=== PATIENT | male | born 1950 | race Caucasian/White ===

== ENCOUNTER 2018-07-13 16:40 | Emergency (ER) | payer MEDICARE, MEDICAID ==
[~2018-07-13] VITALS: Ht 172.7 cm; Wt 75.5 kg
[~2018-07-13 16:40] MED LIST: AZEL137S4 INH; CEFA500C8 PO; CHOL50004 PO; FLUT16SP20 INH; NITR0.4T51 SL; PER10325T PO; PRAV20TA4 PO; STADNS NS
[2018-07-13 16:52] VITALS: BP 109/67
[2018-07-13 18:33] LABS: INR 1.1 INR; PROTHROMBIN TIME 10.8 SECONDS (9.0-12.0)
[2018-07-13 18:38] LABS: BASOPHILS % (AUTO) 0.3 % (0-1); EOSINOPHILS # (AUTO) 0.1 X10'3 (0-0.9); HEMATOCRIT 37.5 % (42.0-52.0); HEMOGLOBIN 12.4 g/dl (14.0-17.9); LYMPHOCYTES % (AUTO) 68.6 % (21-51); MEAN CORPUSCULAR HEMOGLOBIN 31.2 PG (27.0-31.0); MEAN CORPUSCULAR HGB CONC 33.1 g/dL (33.0-36.5); MEAN CORPUSCULAR VOLUME 94.2 FL (78-98); MEAN PLATELET VOLUME 7.6 FL (7.4-10.4); MONOCYTES # (AUTO) 0.4 X10'3 (0-0.9); MONOCYTES % (AUTO) 3.3 % (2-12); NEUTROPHILS # (AUTO) 3.1 X10'3 (1.8-7.7); NEUTROPHILS % (AUTO) 26.8 % (42-75); PLATELET COUNT 163 X10'3 (140-440); RED BLOOD COUNT 3.98 X10'6 (4.70-6.10); RED CELL DISTRIBUTION WIDTH 16.3 % (11.5-14.5); WHITE BLOOD COUNT 11.6 X10'3 (4.5-11.0)
[2018-07-13 18:46] LABS: ALANINE AMINOTRANSFERASE 24 U/L (12-78); ALBUMIN 3.9 G/DL (3.4-5.0); ALBUMIN/GLOBULIN RATIO 1.3 (1.1-1.5); ALKALINE PHOSPHATASE 100 IU/L (46-116); ANION GAP 8 (8-16); ASPARTATE AMINO TRANSFERASE 14 U/L (10-37); BILIRUBIN,TOTAL 0.5 MG/DL (0.1-1.0); BLOOD UREA NITROGEN 22 MG/DL (7-18); BUN/CREATININE RATIO 20.6 (5.4-32.0); CALCIUM 9.4 MG/DL (8.5-10.1); CHLORIDE 104 MMOL/L (99-107); CREATININE 1.07 MG/DL (0.60-1.10); GLUCOSE 102 MG/DL (70-104); LIPASE 312 U/L (73-393); POTASSIUM 4.4 MMOL/L (3.5-5.1); SODIUM 141 MMOL/L (135-145); TOTAL CARBON DIOXIDE 28.9 MMOL/L (24-32); TOTAL PROTEIN 6.9 G/DL (6.4-8.2); eGFR 68 ML/MIN
== END 2018-07-13 20:10 | disposition home or self-care (01) ==
LOC: ER 16:40
DX: K46.9 Unspecified abdominal hernia without obstruction or gangrene (principal); G43.909 Migraine, unspecified, not intractable, without status migrainosus; I25.10 Atherosclerotic heart disease of native coronary artery without angina pectoris; I25.2 Old myocardial infarction; G89.29 Other chronic pain; Z98.890 Other specified postprocedural states; Z91.011 Allergy to milk products; Z79.899 Other long term (current) drug therapy
CPT/HCPCS: 36415; 80053; 83690; 85025; 85610; 99283

== ENCOUNTER 2019-07-26 10:52 | Day surgery (SDC) | payer MEDICARE, MEDICAID ==
[2019-07-26] VITALS (11 sets, daily range): BP systolic 88–103; BP diastolic 47–61
[~2019-07-26] VITALS: Ht 170.2 cm; Wt 65.9 kg
[~2019-07-26 10:52] MED LIST changes: -AZEL137S4 INH; -CEFA500C8 PO; -CHOL50004 PO; -FLUT16SP20 INH; -PER10325T PO; -PRAV20TA4 PO
[2019-07-26] MEDS ORDERED: fentaNYL/PF 50MCG/1 ML 2ML syringe IV ONE (11:35)
[2019-07-26] MEDS ORDERED: MIDAZolam 5mg/ml 2ml vial IV ONE (11:35)
[2019-07-26] MEDS ORDERED: STADNS NS (11:40)
[2019-07-26] MEDS ORDERED: NITR0.4T48 SL (11:40)
[2019-07-26] MEDS ORDERED: MIDAZolam 1mg/ml 10ml vial IV ONE (12:00)
[2019-07-26] MEDS ORDERED: normal saline 1000ml 1,000 ML IV SCH (12:05)
[2019-07-26] MEDS ORDERED: LIDOcaine 1% 30ml preserv. free vial IJ STA (12:06)
== END 2019-07-26 15:15 | disposition home or self-care (01) ==
LOC: SSTAY O 10:52
PROVIDERS: ATTEND Radiology Diagnostic Radiology
DX: R59.0 Localized enlarged lymph nodes (principal); C83.15 Mantle cell lymphoma, lymph nodes of inguinal region and lower limb; D64.9 Anemia, unspecified; E60 Dietary zinc deficiency; Z91.012 Allergy to eggs; Z91.011 Allergy to milk products; Z79.899 Other long term (current) drug therapy
CPT/HCPCS: 38505; 76942; 88184; 88185; 88341; 88342; J2250; J3010; J7030; 88173; 88305

== ENCOUNTER 2019-08-13 11:19 | Day surgery (SDC) | payer MEDICARE, MEDICAID ==
[2019-08-13] VITALS (7 sets, daily range): BP systolic 102–122; BP diastolic 48–69
[~2019-08-13] VITALS: Ht 170.2 cm; Wt 66.3 kg
[~2019-08-13 11:19] MED LIST changes: +NITR0.4T48 SL; -NITR0.4T51 SL
[2019-08-13] MEDS ORDERED: normal saline 1000ml 1,000 ML IV PRN (11:35)
[2019-08-13] MEDS ORDERED: ZINC50TA67 PO (11:47)
[2019-08-13] MEDS ORDERED: FERR325T29 PO (11:47)
[2019-08-13] MEDS ORDERED: fentaNYL/PF 50MCG/1 ML 2ML syringe ONE ×2 (11:47→12:10)
[2019-08-13] MEDS ORDERED: midazolam 2 mg/2 ml injection ONE ×2 (11:47→12:10)
[2019-08-13] MEDS ORDERED: LIDOcaine 1%/PF 5ML 10 MG/ML VIAL ONE ×2 (11:56→12:12)
[2019-08-13] MEDS ORDERED: heparin sodium, porcine/PF 100unit/ml 5ML syringe ONE (11:56)
== END 2019-08-13 14:15 | disposition home or self-care (01) ==
LOC: SSTAY O 11:19
PROVIDERS: ATTEND Radiology Vascular & Interventional Radiology
DX: C88.9 Malignant immunoproliferative disease, unspecified (principal); Z91.011 Allergy to milk products; Z91.012 Allergy to eggs; Z79.899 Other long term (current) drug therapy
CPT/HCPCS: 36561; 76937; 77001; 99152; 99153; J1642; J2250; J3010; C1769; C1788; C1894

== ENCOUNTER 2020-08-23 13:15 | Emergency (ER) | payer MEDICARE, MEDICAID ==
[~2020-08-23] VITALS: Ht 170.2 cm; Wt 68.2 kg
[~2020-08-23 13:15] MED LIST changes: +ALLO300T2 PO; +BENZ-16 PO; +FMLOS; +NITR0.4T SL; -NITR0.4T48 SL; +PROC10TA10 PO; -STADNS NS; +VALA100031 PO
[2020-08-23 13:59] LABS: BASOPHILS % (AUTO) 0.2 % (0-1); EOSINOPHILS # (AUTO) 0.1 X10'3 (0-0.9); EOSINOPHILS % (AUTO) 0.7 % (0-6); HEMATOCRIT 40.1 % (42.0-52.0); HEMOGLOBIN 13.1 g/dl (14.0-17.9); LYMPHOCYTES # (AUTO) 6.9 X10'3 (1.1-4.8); LYMPHOCYTES % (AUTO) 48.1 % (21-51); MEAN CORPUSCULAR HEMOGLOBIN 30.3 PG (27.0-31.0); MEAN CORPUSCULAR HGB CONC 32.7 g/dL (33.0-36.5); MEAN CORPUSCULAR VOLUME 92.6 FL (78-98); MEAN PLATELET VOLUME 8.3 FL (7.4-10.4); MONOCYTES # (AUTO) 1.1 X10'3 (0-0.9); MONOCYTES % (AUTO) 7.7 % (2-12); NEUTROPHILS # (AUTO) 6.2 X10'3 (1.8-7.7); NEUTROPHILS % (AUTO) 43.3 % (42-75); PLATELET COUNT 185 X10'3 (140-440); RED BLOOD COUNT 4.33 X10'6 (4.70-6.10); RED CELL DISTRIBUTION WIDTH 15.9 % (11.5-14.5); WHITE BLOOD COUNT 14.4 X10'3 (4.5-11.0)
[2020-08-23 14:12] LABS: ALANINE AMINOTRANSFERASE 24 U/L (12-78); ALBUMIN 3.9 G/DL (3.4-5.0); ALBUMIN/GLOBULIN RATIO 1.2 (1.1-1.5); ALKALINE PHOSPHATASE 127 IU/L (46-116); ANION GAP 10 (8-16); ASPARTATE AMINO TRANSFERASE 10 U/L (10-37); BILIRUBIN,TOTAL 0.3 MG/DL (0.1-1.0); BLOOD UREA NITROGEN 29 MG/DL (7-18); BUN/CREATININE RATIO 17.9 (5.4-32.0); CALCIUM 9.4 MG/DL (8.5-10.1); CHLORIDE 107 MMOL/L (99-107); CREATININE 1.62 MG/DL (0.60-1.10); GLUCOSE 99 MG/DL (70-104); POTASSIUM 4.4 MMOL/L (3.5-5.1); SODIUM 142 MMOL/L (135-145); TOTAL CARBON DIOXIDE 24.6 MMOL/L (24-32); TOTAL PROTEIN 7.1 G/DL (6.4-8.2); eGFR 42 ML/MIN
[2020-08-23] MEDS ORDERED: normal saline 1000ML IV soln IVB ONE (14:40)
[2020-08-23] MEDS ORDERED: HYDR-3965 PO (15:54)
[2020-08-23 16:19] VITALS: BP 96/62
== END 2020-08-23 16:21 | disposition home or self-care (01) ==
LOC: ER 13:16
DX: S43.492A Other sprain of left shoulder joint, initial encounter (principal); S33.5XXA Sprain of ligaments of lumbar spine, initial encounter; N17.9 Acute kidney failure, unspecified; G43.909 Migraine, unspecified, not intractable, without status migrainosus; I25.10 Atherosclerotic heart disease of native coronary artery without angina pectoris; I25.2 Old myocardial infarction; G89.29 Other chronic pain; Z98.890 Other specified postprocedural states; Z95.1 Presence of aortocoronary bypass graft; Z91.012 Allergy to eggs; Z91.011 Allergy to milk products; Z79.899 Other long term (current) drug therapy; W18.39XA Other fall on same level, initial encounter; Y93.89 Activity, other specified; Y92.89 Other specified places as the place of occurrence of the external cause; Y99.8 Other external cause status
CPT/HCPCS: 36415; 73030; 80053; 83880; 84484; 85025; 93005; 96360; 99285; J7030

== ENCOUNTER 2023-01-14 14:15 | Emergency (ER) | payer MEDICARE, MEDICAID ==
[~2023-01-14] VITALS: Ht 170.2 cm; Wt 67.0 kg
[~2023-01-14 14:15] MED LIST changes: -PROC10TA10 PO; +PROC10TA97 PO
[2023-01-14 14:22] VITALS: BP 102/60; PULSE 81; RESP 18; O2SAT 99
== END 2023-02-22 07:47 | disposition home or self-care (01) ==
LOC: ER 14:16
DX: L08.9 Local infection of the skin and subcutaneous tissue, unspecified (principal); G43.909 Migraine, unspecified, not intractable, without status migrainosus; I25.10 Atherosclerotic heart disease of native coronary artery without angina pectoris; I25.2 Old myocardial infarction; G89.29 Other chronic pain; Z95.5 Presence of coronary angioplasty implant and graft; Z79.899 Other long term (current) drug therapy; Z91.011 Allergy to milk products; Z91.012 Allergy to eggs
CPT/HCPCS: 99281